=== PATIENT | female | born 1945 | race American Indian/Alaskan Native ===

== ENCOUNTER 2017-07-15 13:52 | Inpatient (IN) | payer OTHER ==
--- NOTE | 2017-07-15 13:57 | PDOC ---
History of Present Illness - History of Present Illness Initial Comments: 07/15/17 14:15 The patient is a 72 year old female, with a significant past medical history of CHF, hypertension, emphysema, hyperlipidemia, who presents to the emergency department with increased SOB, as well as, exertional dyspnea for the past "couple of weeks" with new onset of fever today. The patient was seen by Dr. Yuan on Thursday, 07/13, for similar complaint. Dr. Yuan ordered a CXR and the patient also received the flu vaccine on Thursday. The patient reports developing a fever on Thursday. The patient reports she was on her way for her CXR today when she became extremely short of breath. As per ems, the patient's O2 Saturation was 89% in route to ED. She denies chest pain, headache and dizziness. She denies chills, nausea, vomit , diarrhea and constipation. She denies dysuria, frequency, urgency and hematuria. Allergies: NKDA PCP: Dr. Ryan Yuan <Loulou Holman - Last Filed: 07/15/17 18:40> <Jeff Winston - Last Filed: 07/15/17 19:04> - General Chief Complaint: Weakness Stated Complaint: WEAKNESS Time Seen by Provider: 07/15/17 13:57 Past History <Loulou Holman - Last Filed: 07/15/17 18:40> <Jeff Winston - Last Filed: 07/15/17 19:04> - Past Medical History Allergies/Adverse Reactions: Allergies Allergy/AdvReac Type Severity Reaction Status Date / Time No Known Allergies Allergy Verified 07/15/17 14:12 Home Medications: Ambulatory Orders Aspirin [Aspirin EC] 81 mg PO DAILY 07/15/17 Atorvastatin Ca [Lipitor] 40 mg PO HS 07/15/17 Furosemide [Lasix] 40 mg PO BID 07/15/17 Hydralazine HCl [Apresoline -] 25 mg PO BID 07/15/17 Insulin Aspart [Novolog] 0 unit SQ TID PRN 07/15/17 Insulin Degludec [Tresiba Flextouch U-200] 30 unit SQ HS 07/15/17 Isosorbide Mononitrate [Imdur -] 30 mg PO DAILY 07/15/17 Levothyroxine [Synthroid -] 50 mcg PO DAILY 07/15/17 Metoprolol Succinate [Toprol Xl -] 25 mg PO DAILY 07/15/17 Omeprazole 40 mg PO DAILY 07/15/17 Ranolazine [Ranexa -] 500 mg PO DAILY 07/15/17 Review of Systems - Review of Systems Able to Perform ROS?: Yes Comments:: 07/15/17 14:23 GENERAL/CONSTITUTIONAL: No fever or chills. No weakness. HEAD, EYES, EARS, NOSE AND THROAT: No change in vision. No ear pain or discharge. No sore throat. CARDIOVASCULAR: No chest pain RESPIRATORY: (+) exertional dyspnea and dyspnea at rest. No cough, wheezing, or hemoptysis. GASTROINTESTINAL: No nausea, vomiting, diarrhea or constipation. GENITOURINARY: No dysuria, frequency, or change in urination. MUSCULOSKELETAL: No joint or muscle swelling or pain. No neck or back pain. SKIN: No rash NEUROLOGIC: No headache, vertigo, loss of consciousness, or change in strength/ sensation. ENDOCRINE: No increased thirst. No abnormal weight change. HEMATOLOGIC/LYMPHATIC: No anemia, easy bleeding, or history of blood clots. ALLERGIC/IMMUNOLOGIC: No hives or skin allergy. <Loulou Holman - Last Filed: 07/15/17 18:40> *Physical Exam - Physical Exam Comments: 07/15/17 14:23 GENERAL: Awake, alert, and fully oriented, in no acute distress HEAD: No signs of trauma EYES: PERRLA, EOMI, sclera anicteric, conjunctiva clear ENT: Auricles normal inspection, hearing grossly normal, nares patent, oropharynx clear without exudates. Moist mucosa NECK: (+) JVD, Normal ROM, supple, no lymphadenopathy, or masses LUNGS: (+) rales. Breath sounds equal, No wheezes, and no crackles HEART: Regular rate and rhythm, normal S1 and S2, no murmurs, rubs or gallops ABDOMEN: Soft, nontender, normoactive bowel sounds. No guarding, no rebound. No masses EXTREMITIES: (+) Swelling to bilateral LE right worse than left. Normal range of motion, No clubbing or cyanosis. No cords, erythema, or tenderness NEUROLOGICAL: Cranial nerves II through XII grossly intact. Normal speech, normal gait SKIN: Warm, Dry, normal turgor, no rashes or lesions noted. <Loulou Holman - Last Filed: 07/15/17 18:40> ED Treatment Course - LABORATORY CBC & Chemistry Diagram: 07/15/17 14:33 07/15/17 14:33 <Loulou Holman - Last Filed: 07/15/17 18:40> - LABORATORY CBC & Chemistry Diagram: 07/15/17 14:33 07/15/17 14:33 <Jeff Winston - Last Filed: 07/15/17 19:04> Medical Decision Making - Medical Decision Making 07/15/17 17:52 Dr. Carter was paged via phone answering service at this time requesting a call back for doctor to doctor consult. for admission. 07/15/17 18:41 Dr. Carter was paged via phone answering service a second time requesting a call back for doctor to doctor consult. <Loulou Holman - Last Filed: 07/15/17 18:40> *DC/Admit/Observation/Transfer - Attestations Scribe Attestion: 07/15/17 14:24 Documentation prepared by Loulou Holman, acting as biomedical engineering professor for Jeff Winston DO <Loulou Holman - Last Filed: 07/15/17 18:40> - Discharge Dispostion Admit: Yes - Attestations Physician Attestion: 07/15/17 13:57 I, Dr. Jeff Winston, attest that this document has been prepared under my direction and personally reviewed by me in its entirety. I further attest, that it accurately reflects all work, treatment, procedures and medical decision -making performed by me. <Jeff Winston - Last Filed: 07/15/17 19:04> Diagnosis at time of Disposition: Acute kidney injury, Generalized weakness CHF (congestive heart failure) Qualifiers: Congestive heart failure type: combined Congestive heart failure chronicity: acute on chronic Qualified Code(s): I50.43 - Acute on chronic combined systolic (congestive) and diastolic (congestive) heart failure - Discharge Dispostion Condition at time of disposition: Unchanged/Unknown - Referrals Referrals: Ryan Yuan [Primary Care Provider] -
[2017-07-15 14:16] VITALS: BMI 34.2
[2017-07-15 14:42] LABS: BASOPHIL 0.5 % (0-2.0); EOSINOPHIL 0.3 % (0-4.5); MCHC 32.3 g/dl (32.0-36.0); MEAN CELL VOLUME 83.7 fl (80-96); MEAN PLT VOLUME 7.9 fl (7.5-11.1); NEUTROPHILS 85.2 % (42.8-82.8); PLATELET COUNT 320 K/MM3 (134-434); RDW 14.5 % (11.6-15.6); WHITE BLOOD COUNT 11.2 K/mm3 (4.0-10.0)
[2017-07-15 14:52] LABS: VENOUS BLOOD GAS HCO3 28.5 meq/L (19-25); VENOUS PH 7.36 (7.32-7.42)
[2017-07-15 15:13] LABS: ALBUMIN 2.3 g/dl (3.4-5.0); ANION GAP 9 (8-16); BILIRUBIN,TOTAL 0.4 mg/dL (0.2-1.0); CALCIUM 8.3 mg/dL (8.5-10.1); CO2 28 mmol/L (21-32); CREATININE 3.4 mg/dL (0.55-1.02); SGOT/AST 21 U/L (15-37); SGPT/ALT 18 U/L (12-78)
[2017-07-15 15:16] LABS: ALK PHOS 91 U/L (45-117); CPK 68 IU/L (26-192); TROPONIN I 0.07 ng/ml (0.00-0.05)
[2017-07-15 15:17] LABS: GLUCOSE,RANDOM 222 mg/dL (74-106)
[2017-07-15 15:56] LABS: INR 1.2 (0.82-1.09); PROTHROMBIN TIME (PATIENT) 13.6 SEC (9.98-11.88)
[2017-07-15 15:59] LABS: ACTIVATED PTT 36.3 SECONDS (26.9-34.4)
[2017-07-15 17:07] LABS: URINE APPEARANCE SLCLOUDY; URINE BILIRUBIN NEGATIVE (NEGATIVE); URINE BLOOD NEGATIVE (NEGATIVE); URINE COLOR LTYELLOW; URINE GLUCOSE (UA) 2+ (NEGATIVE); URINE KETONE NEGATIVE (NEGATIVE); URINE NITRITE NEGATIVE (NEGATIVE); URINE UROBILINOGEN NEGATIVE mg/dL (0.2-1.0)
[2017-07-15 17:24] LABS: URINE PROTEIN 3+ (NEGATIVE)
[2017-07-15 18:58] LABS: URINE BACTERIA RARE /hpf (NONE SEEN); URINE RBC 2 /hpf (0-3); URINE WBC 3 /hpf (3-5)
[2017-07-15] MEDS ORDERED: SODIUM CHLORIDE 1,000 ML IV SCH (19:00)
[2017-07-15] MEDS ORDERED: ACETAMINOPHEN 325 MG TABLET (FP) PO PRN (19:21)
[2017-07-15 19:24] VITALS: BP 130/89; PULSE 102
[2017-07-15 20:14] LABS: URINE LEUK ESTERASE Negative (NEGATIVE)
[2017-07-15 21:42] VITALS: TEMP 98.7
[2017-07-15] MEDS ORDERED: ATORVASTATIN CA 20 MG TABLET (FP) PO SCH (22:00)
[2017-07-15] MEDS ORDERED: INSULIN DETEMIR 100 UNITS/ML MDV SQ SCH (22:00)
[2017-07-15] MEDS ORDERED: RANOLAZINE E.R. 500 MG TABLET (FP) PO SCH (22:00)
[2017-07-15] MEDS ORDERED: INSULIN SLIDING SCALE (NOVOLOG) 1 VIAL SQ SCH (22:00)
--- NOTE | 2017-07-16 02:09 | PDOC ---
*Physical Exam - Vital Signs Last Vital Signs Temp Pulse Resp BP Pulse Ox 98.7 F 102 H 16 130/89 95 07/15/17 21:41 07/15/17 19:21 07/15/17 19:21 07/15/17 19:21 07/15/17 19:21 ED Treatment Course - LABORATORY CBC & Chemistry Diagram: 07/15/17 14:33 07/15/17 14:33 - ADDITIONAL ORDERS Additional order review: Laboratory Results 07/15/17 07/15/17 07/15/17 17:00 14:49 14:33 PT with INR INR PTT (Actin FS) VBG pH POC VBG pCO2 POC VBG pO2 Mixed VBG HCO3 Sodium Potassium Chloride Carbon Dioxide Anion Gap BUN Creatinine Creat Clearance w eGFR Random Glucose Lactic Acid Calcium Total Bilirubin AST ALT Alkaline Phosphatase Creatine Kinase Troponin I B-Natriuretic Peptide 71978.69 H Total Protein Albumin Urine Color Ltyellow Urine Appearance Slcloudy Urine pH 5.0 Ur Specific [place] 1.020 Urine Protein 3+ H Urine Glucose (UA) 2+ H Urine Ketones Negative Urine Blood Negative Urine Nitrite Negative Urine Bilirubin Negative Urine Urobilinogen Negative Ur Leukocyte Esterase Negative Urine RBC 2 Urine WBC 3 Ur Epithelial Cells Rare Urine Bacteria Rare Blood Type O POSITIVE Antibody Screen Negative 07/15/17 07/15/17 07/15/17 14:33 14:33 14:33 PT with INR 13.60 H INR 1.20 H PTT (Actin FS) 36.3 H VBG pH POC VBG pCO2 POC VBG pO2 Mixed VBG HCO3 Sodium 134 L Potassium 3.6 Chloride 97 L Carbon Dioxide 28 Anion Gap 9 BUN 52 H D Creatinine 3.4 H D Creat Clearance w eGFR 13.20 Random Glucose 222 H Lactic Acid 1.1 Calcium 8.3 L Total Bilirubin 0.4 AST 21 ALT 18 Alkaline Phosphatase 91 Creatine Kinase 68 Troponin I 0.07 H B-Natriuretic Peptide Total Protein 7.0 Albumin 2.3 L Urine Color Urine Appearance Urine pH Ur Specific [place] Urine Protein Urine Glucose (UA) Urine Ketones Urine Blood Urine Nitrite Urine Bilirubin Urine Urobilinogen Ur Leukocyte Esterase Urine RBC Urine WBC Ur Epithelial Cells Urine Bacteria Blood Type Antibody Screen 07/15/17 14:08 PT with INR INR PTT (Actin FS) VBG pH 7.36 POC VBG pCO2 51.9 POC VBG pO2 19.9 L* Mixed VBG HCO3 28.5 H Sodium Potassium Chloride Carbon Dioxide Anion Gap BUN Creatinine Creat Clearance w eGFR Random Glucose Lactic Acid Calcium Total Bilirubin AST ALT Alkaline Phosphatase Creatine Kinase Troponin I B-Natriuretic Peptide Total Protein Albumin Urine Color Urine Appearance Urine pH Ur Specific [place] Urine Protein Urine Glucose (UA) Urine Ketones Urine Blood Urine Nitrite Urine Bilirubin Urine Urobilinogen Ur Leukocyte Esterase Urine RBC Urine WBC Ur Epithelial Cells Urine Bacteria Blood Type Antibody Screen 07/15/17 14:33 RBC 4.07 MCV 83.7 MCHC 32.3 RDW 14.5 MPV 7.9 Neutrophils % 85.2 H Lymphocytes % 8.0 Monocytes % 6.0 Eosinophils % 0.3 Basophils % 0.5 Medical Decision Making - Medical Decision Making 07/16/17 02:05 informed by nursing staff that was bradying down to 30's. Pt had no pulse. CPR started at 1:45am. Pt intubated with 7.5 ET tube. EPi x3, Bicarb x1, Calcium gluconate x1, Accucheck 140's No cardiac activity seen on Sonosite. Pt pronounced by me at 1: 57am. Pt daughter Rene June present in the department. Pt pcp Dr. Carter informed. [facility] examiner informed, research investigator Prashanth Navas. Case not accepted #[id number] *DC/Admit/Observation/Transfer Diagnosis at time of Disposition: Acute kidney injury, Generalized weakness, Cardiac arrest CHF (congestive heart failure) Qualifiers: Congestive heart failure type: combined Congestive heart failure chronicity: acute on chronic Qualified Code(s): I50.43 - Acute on chronic combined systolic (congestive) and diastolic (congestive) heart failure - Discharge Dispostion Disposition: Condition at time of disposition: Procedure Note Procedure: Pt intubated with 7.5 ETT. Vocal cords visualized. Bilateral BS asculutated Capnometer should good color changed
[2017-07-16] MEDS ORDERED: LEVOTHYROXINE NA 50 MCG TABLET (FP) PO SCH (07:00)
[2017-07-16] MEDS ORDERED: METOPROLOL SUCCINATE 25 MG TAB.SR.24H (FP) PO SCH (10:00)
[2017-07-16] MEDS ORDERED: ISOSORBIDE MONONITRATE 30 MG TAB.SR.24H (FP) PO SCH (10:00)
[2017-07-16] MEDS ORDERED: PANTOPRAZOLE 40 MG TABLET (FP) PO SCH (10:00)
[2017-07-16] MEDS ORDERED: ASPIRIN COATED 81 MG TABLET.EC PO SCH (10:00)
--- NOTE | 2017-07-16 10:42 | EKG ---
Test Reason : Blood Pressure : / mmHG Vent. Rate : 112 BPM Atrial Rate : 112 BPM P-R Int : 188 ms QRS Dur : 086 ms QT Int : 336 ms P-R-T Axes : 074 -42 116 degrees QTc Int : 458 ms POOR DATA QUALITY, INTERPRETATION MAY BE ADVERSELY AFFECTED SINUS TACHYCARDIA WITH FREQUENT PREMATURE VENTRICULAR COMPLEXES POSSIBLE LEFT ATRIAL ENLARGEMENT LEFT AXIS DEVIATION LEFT VENTRICULAR HYPERTROPHY WITH REPOLARIZATION ABNORMALITY CANNOT RULE OUT SEPTAL INFARCT , AGE UNDETERMINED ABNORMAL ECG WHEN COMPARED WITH ECG OF 27-SEP-2013 12:15, MINIMAL CRITERIA FOR SEPTAL INFARCT ARE NOW PRESENT T WAVE INVERSION LESS EVIDENT IN LATERAL LEADS Confirmed by DELBERT BALDERRAMA MD ([id number]) on 07/16/2017 10:42:18 AM Referred By: Confirmed By:DELBERT BALDERRAMA MD
== END 2017-07-16 01:57 | disposition expired | DRG 682 ==
LOC: JER 13:52 → JERBED 19:04
PROVIDERS: ADMIT Family Medicine; ATTEND Family Medicine
PROC: 0BH17EZ Insertion of Endotracheal Airway into Trachea, Via Natural or Artificial Opening (ICD-10-PCS; principal; 2017-07-15)
PROC: 5A12012 Performance of Cardiac Output, Single, Manual (ICD-10-PCS; 2017-07-15)
DX: N17.9 Acute kidney failure, unspecified (principal); I50.43 Acute on chronic combined systolic (congestive) and diastolic (congestive) heart failure; I46.9 Cardiac arrest, cause unspecified; I10 Essential (primary) hypertension; J43.9 Emphysema, unspecified; E78.5 Hyperlipidemia, unspecified; Z79.4 Long term (current) use of insulin
CPT/HCPCS: 36415; 71010-TC; 76775-TC; 76856-TC; 80053; 81003; 81015; 82550; 82803; 83605; 83880; 84484; 85025; 85610; 85730; 86850; 86900; 86901; 87040; 87086; 93005; 93010; 93970-TC; 99285-25